=== PATIENT | female | born 1985 | race Caucasian/White ===

== ENCOUNTER 2017-05-07 09:12 | Emergency (ER) | payer OTHER ==
[~2017-05-07] VITALS: Ht 149.9 cm; Wt 70.0 kg
[2017-05-07 09:16] VITALS: BP 116/79; PULSE 96; RESP 18; TEMP 98.4; O2SAT 96
[2017-05-07] MEDS ORDERED: ATOM60 PO (09:53)
[2017-05-07] MEDS ORDERED: SUBO8MIS SL (09:53)
[2017-05-07] MEDS ORDERED: LEXA20TA PO (09:53)
[2017-05-07] MEDS ORDERED: GABA600T PO (09:53)
[2017-05-07] MEDS ORDERED: TRAZ50TA12 PO (09:53)
--- NOTE | 2017-05-07 10:12 | PD ---
HPI Chief Complaint: Injury Time Seen by Provider: 09:37 Travel History International Travel<30 days: No Contact w/Intl Traveler<30days: No Traveled to known affect area: No History of Present Illness HPI This is a 32-year-old female here with right ankle pain after a mild twisting injury today. She reports while stepping down off of a transportation vehicle she slipped and twisted the ankle causing pain. She has pain with weightbearing. Pain is relieved with rest. Denies paresthesia or weakness of the extremity. Symptom severity is mild. PFSH Past Medical History Anxiety: Yes Depression: Yes Diminished Hearing: No Medical other: Yes (OPIATES DEPENDENT ) Musculoskeletal: Yes (CHRONIC NECK PAIN ) Tetanus Vaccination: Unknown Influenza Vaccination: No ?: Not Social History Alcohol Use: No Tobacco Use: No Substance Use: No (HX: OPIATES DEPENDENT ) Allergies-Medications (Allergen,Severity, Reaction): Coded Allergies: No Known Allergies (Unverified , 05/07/17) Reported Meds & Prescriptions Reported Meds & Active Scripts Active Reported Lexapro (Escitalopram Oxalate) 20 Mg Tab 20 Mg PO DAILY Suboxone Sublingual Film (Buprenorphine-Naloxone Sublingual Film) 8-2 Mg Film 1 Film SL BID Unique ID number required: Gabapentin 600 Mg Tab 600 Mg PO TID Strattera (Atomoxetine HCl) 60 Mg Cap 60 Mg PO DAILY Trazodone (Trazodone HCl) 50 Mg Tab 50 Mg PO HS Review of Systems Except as stated in HPI: all other systems reviewed are Neg General / Constitutional: No: Fever Physical Exam Narrative GENERAL: Alert and well-appearing 32-year-old female. SKIN: Warm and dry. HEAD: Normocephalic. EYES: No scleral icterus. No injection or drainage. NECK: Supple, trachea midline. No JVD or lymphadenopathy. MUSCULOSKELETAL: No cyanosis, or edema. Right lower extremity: Patient has mild tenderness over the anterior aspect of the ankle. No bony tenderness of the medial or lateral malleolus. No swelling. No ecchymosis. No deformity. 2 + distal pulses. Brisk cap refill. Data Data Last Documented VS Vital Signs Date Time Temp Pulse Resp B/P (MAP) Pulse Ox O2 Delivery O2 Flow Rate FiO2 05/07/17 09:16 98.4 96 18 116/79 (91) 96 Room Air Orders Orders Corbin Bandage (05/07/17 10:12) Ed Discharge Order (05/07/17 10:13) [facility] Medical Decision Making Medical Screen Exam Complete: Yes Emergency Medical Condition: Yes Differential Diagnosis Ankle sprain, midfoot sprain, fracture Narrative Course This is a 32-year-old female here with mild right ankle pain after a minor twisting injury. The extremity is neurovascularly intact. The joint is stable. There is no swelling. No bony tenderness. I do not suspect fracture. Patient will be treated for minor sprain Diagnosis Primary Impression: Ankle sprain Qualified Codes: S93.401A - Sprain of unspecified ligament of right ankle, initial encounter Referrals: Primary Care Physician Additional Instructions: Corbin wrap as directed. Ice and elevate the extremity. [id number] ibuprofen as needed for pain. Follow-up the primary doctor. Disposition: 01 DISCHARGE HOME Condition: Stable Sydnee Babcock May 07, 2017 10:12
== END 2017-05-07 11:08 | disposition home or self-care (01) ==
LOC: NEPK 09:12
DX: S93.401A Sprain of unspecified ligament of right ankle, initial encounter (principal); X50.1XXA Overexertion from prolonged static or awkward postures, initial encounter; F32.9 Major depressive disorder, single episode, unspecified
CPT/HCPCS: 99282; E0113